=== PATIENT | male | born 2000 | race Caucasian/White ===

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

== ENCOUNTER 2021-10-31 00:05 | Emergency (ER) | payer SELFPAY ==
[~2021-10-31 00:05] MED LIST: FLEXERIL 10 MG10 MG PO; IBUPROFEN600 MG PO; IBUPROFEN800 MG PO; LODINE CAP 300300 MG PO; NORFLEX 100 MG100 MG PO; PROTONIX40 MG PO; ZOFRAN4 MG PO
[2021-10-31 00:29] LABS: HEMOGLOBIN 15.1 gm/dl (14.0-17.5); RED BLOOD COUNT 5.22 M/UL (4.20-5.50); WHITE BLOOD COUNT 10.3 K/UL (4.5-11.0)
[2021-10-31 01:48] LABS: BUN/CREATININE RATIO 14 (0-10)
[2021-10-31] MEDS ORDERED: HOLTER MONITOR (02:52)
== END 2021-10-31 03:13 | disposition home or self-care (01) ==
LOC: ER1 00:05
PROVIDERS: Family Medicine
DX: R07.9 Chest pain, unspecified (principal)
CPT/HCPCS: 71046; 80053; 82550; 82553; 84484; 85025; 93005; 99285